=== PATIENT | male | born 1965 | race African-American/Black ===

== ENCOUNTER 2018-06-26 15:48 | Emergency (ER) | payer MEDICARE, MEDICAID ==
--- NOTE | 2018-06-26 18:14 | CT ---
CT FACIAL BONES WITH CORONAL AND SAGITTAL REFORMATIONS: 06/26/18 HISTORY: Left jaw injury and pain, fall. FINDINGS/IMPRESSION: There is a nondisplaced fracture involving the right parasymphyseal region of the mandible. There is a mildly displaced subcondylar fracture on the left with anterior displacement/dislocation of the lef t mandibular condyle. The remainder of the facial bones are intact. There is mucosal disease in the paranasal sinuses. POS: JITENDRAH
[2018-06-26 18:49] LABS: #Eosinphils 0.3 thou/uL (0.0-0.7); #Lymphocytes 1.9 thou/uL (1.20-3.40); #Monocytes 0.7 thou/uL (0.11-0.59); #Neutrophils 4.5 thou/uL (1.40-6.50); %Basophils 0.6 % (0.0-1.0); %Eosinophils 3.4 % (0.0-10.0); %Lymphocytes 25.3 % (21.0-51.0); %Monocytes 9.9 % (0.0-10.0); %Neutrophils 60.8 % (42.0-75.0); Hemoglobin 13.4 g/dL (14.0-18.0); Mean Corpuscular HGB CONC 33.8 g/dL (32.0-36.0); Mean Corpuscular Hemoglobin 30.8 pg (27.0-31.0); Mean Corpuscular Volume 91.3 fL (78.0-98.0); Mean Platelet Volume 6.2 fL (7.4-10.4); Platelet Count 568 thou/uL (130-400); RBC Distribution Width 11.4 % (11.5-14.5); Red Blood Cell (RBC) Count 4.33 mill/uL (4.70-6.10); White Blood Cell (WBC) Count 7.4 thou/uL (4.8-10.8)
[2018-06-26 19:11] LABS: ALT (SGPT) 16 U/L (8-55); AST (SGOT) 15 U/L (5-34); Albumin 3.8 g/dL (3.5-5.0); Alkaline Phosphatase 102 U/L (40-150); Anion Gap 11 mmol/L (10-20); BUN (Urea Nitrogen) 12 mg/dL (8.4-25.7); Bilirubin, Total 0.4 mg/dL (0.2-1.2); Calc. Creatinine Clearance 0 mL/min (70-130); Calcium 10.3 mg/dL (7.8-10.44); Carbon Dioxide 29 mmol/L (22-29); Chloride 101 mmol/L (98-107); Estimated GFR-MDRD 47; Globulin 3.7 g/dL (2.4-3.5); Glucose 105 mg/dL (70-105); Potassium 4.3 mmol/L (3.5-5.1); Protein, Total 7.5 g/dL (6.0-8.3); Sodium 137 mmol/L (136-145)
--- NOTE | 2018-06-26 20:47 | HP ---
REQUESTING PHYSICIAN: Bety Evans PA-C. ATTENDING SURGEON: Himanshu Crisostomo MD CONSULTATIONS: Oral Maxillofacial Surgery, Dr. Leggett. HISTORY OF PRESENT ILLNESS: The patient is a 52-year-old man, who is a resident at the [facility]. He is a patient, who suffers from severe mental retardation. He reportedly had a fall on 06/19 and hit his face. The patient would be examined and evaluated, but discharged back to his facility. The patient then had a recheck yesterday on 06/25 after his swelling of his left cheek increased. It was noted that he had left mandibular condylar fracture; at which time, he was taken from the [facility] in [place] to [place] where they examined him and the team there felt that he could be managed nonoperatively. Today, the facility requested another opinion and he was brought to our facility where he underwent evaluation and examination to include a repeat face CT, which showed displaced fracture on the left and a nondisplaced fracture on the right at which time, Dr. Leggett accepted the patient and recommended surgery. At which time, we were asked to admit the patient. ALLERGIES: NONE. CURRENT MEDICATIONS: 1. Amiloride. 2. Buspirone. 3. Vitamin D3. 4. Iron. 5. [place] carbonate. 6. Natalie. 7. Docusate. 8. Risperidone. PAST MEDICAL HISTORY: Chronic renal failure, atrial septal defect, chronic anemia, retinal detachment, autism, bipolar disorder. PAST SURGICAL HISTORY: Colonoscopy, vitrectomy, EGD, hemicolectomy, adenoidectomy, tonsillectomy, and reconstructive facial surgery. SOCIAL HISTORY: There is no history of drug, tobacco, or alcohol use. Again, the patient lives in the [facility]. REVIEW OF SYSTEMS: 10-point review of systems is negative except as otherwise stated. PHYSICAL EXAMINATION: VITAL SIGNS: Blood pressure 127/84, heart rate 96, respirations 14, oxygen saturation 97% on room air, and temperature is 98.7. GENERAL: The patient is resting comfortably in bed. He appears in no distress. His stay school guardian is here with him, who states that he is at his baseline that the patient is nonverbal. HEENT: Head; normocephalic, atraumatic. Eyes are difficult to examine due to the patient's compliance. Ears are atraumatic without discharge. Nose atraumatic without discharge. Oropharynx, the patient has noted marked swelling on the left, less so on the right. Unable to have the patient open his jaw likely due to discomfort. NECK: Nontender. Trachea is midline. No JVD. CHEST: Clear to auscultation with moderate inspiratory and expiratory effort. HEART: Regular rate and rhythm. ABDOMEN: Soft, flat, nontender with active bowel sounds. PELVIS: Stable. EXTREMITIES: Neurovascularly intact x4. The patient moves all 4 extremities. Follows very simple commands. The patient is noted to have abrasions on his left dorsum of his hand that the guardian states happened at the time of his fall. BACK: By report is atraumatic and nontender. LABORATORY FINDINGS: White blood cell count 7.4, hemoglobin 13.4, hematocrit 39.6, platelets 568. Sodium 137, potassium 4.3, chloride 101, CO2 of 29, BUN 12, creatinine 1.83, glucose 105. LFTs are unremarkable. RADIOGRAPHIC FINDINGS: CT of the face without contrast shows a nondisplaced fracture involving the right parasymphyseal region of the mandible. There is a mildly displaced supracondylar fracture on the left with anterior displacement/dislocation of the left mandibular condyle. The remainder of the facial bones are intact. ASSESSMENT: 1. Status post fall with remote presentation. 2. Bilateral mandible fractures. 3. Autism, bipolar disorder. 4. Acute pain secondary to above. PLAN: Plan will be to admit the patient to the surgical floor. We will make him n.p.o. after midnight with plans for surgery in the morning. We will let him to have shakes tonight and anything else he can tolerate liquids, IV hydration, pain control, pulmonary toilet, gastritis, and mechanical VTE prophylaxis. The ER has discussed this case with Dr. Leggett and this case will be discussed with Dr. Crisostomo after this dictation. Job ID: [id number]
--- NOTE | 2018-06-30 15:40 | CON ---
DATE OF CONSULTATION: REASON FOR CONSULTATION: Bilateral mandible fractures and consultation in response to [facility] with chief complaint of mandible fractures. HISTORY OF PRESENT ILLNESS: This is a 52-year-old male with past medical history of severe autism. He currently lives in the [facility]. He was seen approximately a week and a half ago on June 19 for a fall and mandible fracture in the [facility] at [facility], for which they deemed the fractures need no operation. The patient was then transferred back to [facility], where he saw the primary care doctor there, who wanted a second opinion, sent him to [facility] in [facility]. PAST MEDICAL HISTORY: Mental deficiency, severe autism, bipolar. The patient is noncommunicative with in. PAST SURGICAL HISTORY: Colonoscopy, EGD, hemicolectomy, tonsillectomy, adenoidectomy, and vitrectomy. OUTPATIENT MEDICATIONS: The patient is on multiple medications as listed in the EMR. ALLERGIES: HE HAS NO KNOWN DRUG ALLERGIES. FAMILY HISTORY: He is accompanied by a boy from the [facility] today. SOCIAL HISTORY: He does not drink alcohol or smoke. He is living currently in [facility]. PHYSICAL EXAMINATION: GENERAL: He is awake. He appears alert and does not answer questions to orientation of person, place, or time. HEENT: His pupils are equal, round, and reactive to light and accommodation. He has good range of motion in his neck. Naris is patent bilaterally. He does have about a 3 cm laceration under his chin, which had appeared to be closed approximately over a week ago on June 19 when he was seen originally. It looked the stitches are intact. The wound is clean, dry, and intact. There are no signs or symptoms of infection. I was able to get the patient to open and close, he opened well without actually any deviation of the mandible. His occlusion was good. He is missing multiple teeth bilaterally in the maxilla and mandible, but appeared to have a good repeatable occlusion. There was no open fracture site seen. There is no fracture mobility of the mandible. His oropharynx is clear. There is no floor of mouth elevation. There are no signs or symptoms of infection or purulence. VITAL SIGNS: In the ER were all stable. He was afebrile. A CT scan of the face at [facility] showed a left condylar head fracture as well as a right parasymphysis fracture, which is nondisplaced hairline fracture. LABORATORY DATA: The patient's white blood cell count is 7.3. ASSESSMENT: This is a 52-year-old male with nondisplaced right parasymphysis fracture and a left subcondylar-condylar head fracture with no gross malocclusion. PLAN: No surgical treatment of this fracture is needed. However, I would like the patient to be on a full liquid diet for five more weeks. The patient is to follow up in my clinic in one week. I would also recommend Peridex oral rinse three times a day along with brushing. Please note, the patient's vital signs upon ER visit in my initial assessment on 06/26/2018 at approximately 8:00 p.m. were blood pressure 127/84, pulse 96, respirations 14, temperature 98.7, and saturating 97% on room air. Job ID: [id number]
== END 2018-06-26 22:07 ==
LOC: ERS 15:48
DX: S02.622A Fracture of subcondylar process of left mandible, initial encounter for closed fracture (principal); S02.66XA Fracture of symphysis of mandible, initial encounter for closed fracture; D64.9 Anemia, unspecified; F84.0 Autistic disorder; N18.9 Chronic kidney disease, unspecified; F31.9 Bipolar disorder, unspecified; Z79.899 Other long term (current) drug therapy; W18.30XA Fall on same level, unspecified, initial encounter
CPT/HCPCS: 70486; 80053; 85025; 93005